=== PATIENT | female | born 1960 ===

== ENCOUNTER 2023-12-31 13:43 | Inpatient (IN) | payer BC ==
[~2023-12-31] VITALS: Ht 142.2 cm; Wt 56.5 kg
[2024-01-24] MEDS ORDERED: LR 1,000 ML IV SCH (21:45)
[2024-01-28] VITALS (13 sets, daily range): BP systolic 95–140; BP diastolic 62–90; PULSE 74–96; TEMP 97.4–98.1
[2024-01-28] MEDS ORDERED: LR 1,000 ML IV SCH (05:00)
[2024-01-28] MEDS ORDERED: Lidocaine PF 2% (20 MG/ML) 5 ML VIAL ONE (06:26)
[2024-01-28] MEDS ORDERED: fentaNYL 50 MCG/ML 2 ML VIAL ONE (06:26)
[2024-01-28] MEDS ORDERED: Midazolam 2 MG/2 ML VIAL ONE (06:26)
[2024-01-28] MEDS ORDERED: ePHEDrine 50 MG/ML VIAL ONE (06:30)
[2024-01-28] MEDS ORDERED: Tranexamic Acid 1,000 MG/10 ML VIAL ONE ×2 (06:35→10:08)
[2024-01-28] MEDS ORDERED: LOPRESSOR 225 MG/TAB PO (06:38)
[2024-01-28] MEDS ORDERED: LASIX 40MG TABL40 MG PO (06:39)
[2024-01-28] MEDS ORDERED: K-TAB20 PO (06:39)
[2024-01-28] MEDS ORDERED: LIPITOR 40MG TA40 MG PO (06:40)
[2024-01-28] MEDS ORDERED: MULTI VITAMINS1 TAB PO (06:40)
[2024-01-28] MEDS ORDERED: CALCIUM 600600 MG PO (06:40)
[2024-01-28] MEDS ORDERED: ASPIRIN 81M81 MG/TA2 PO (06:41)
[2024-01-28] MEDS ORDERED: ULTRAM 50MG TAB50 MG PO (06:42)
[2024-01-28] MEDS ORDERED: TYLENOL 325MG325 MG PO (06:42)
[2024-01-28 06:43] LABS: HEMATOCRIT 39.2 % (37.0-47.0); HEMOGLOBIN 14.1 g/dl (12.5-16.0); MEAN CELL VOLUME 90 fl (80.0-100.0); MEAN CORPUSCULAR HEMOGLOBIN 32 pg (27-31); MEAN CORPUSCULAR HGB CONC 36 g/dl (33.0-37.0); MEAN PLATELET VOLUME 10.2 fl (7.4-10.4); PLATELET COUNT 183 K/mm3 (130-400); RED BLOOD COUNT 4.36 M/mm3 (4.10-5.30); REDCELL DISTRIBUTION WIDTH-CV 11.8 % (11.5-14.5)
[2024-01-28] MEDS ORDERED: XALATAN EYE DROPS OU (06:43)
[2024-01-28 06:47] LABS: INR 1.2 (0.8-3.0); PROTHROMBIN TIME 12.8 SECONDS (9.7-12.8)
[2024-01-28] MEDS ORDERED: Bisacodyl 5 MG TAB PO PRN (07:15)
[2024-01-28] MEDS ORDERED: Mag/Al Hydrox/Simeth Susp 30 ML CUP PO PRN (07:15)
[2024-01-28] MEDS ORDERED: Ondansetron 4 MG/2 ML VIAL IV PRN ×2 (07:15→08:00)
[2024-01-28] MEDS ORDERED: Morphine 4 MG/ML VIAL IV PRN (07:15)
[2024-01-28] MEDS ORDERED: Naloxone 0.4 MG/ML VIAL IV PRN (07:15)
[2024-01-28] MEDS ORDERED: Magnes Hydrox (MOM) 80 MG/ML 30 ML CUP PO PRN (07:15)
[2024-01-28] MEDS ORDERED: Ketorolac 15 MG/ML VIAL IV SCH (07:15)
[2024-01-28] MEDS ORDERED: NS 1,000 ML IV SCH (07:15)
[2024-01-28] MEDS ORDERED: oxyCODONE 5 MG TAB PO PRN (07:15)
[2024-01-28] MEDS ORDERED: Acetaminophen 500 MG TAB PO PRN (07:15)
[2024-01-28] MEDS ORDERED: HYDROmorphone 1 MG/1 ML SYRINGE [PACU/SDC ONLY] IV PRN (08:00)
[2024-01-28] MEDS ORDERED: fentaNYL 50 MCG/ML 1 ML SYRINGE/VIAL [PACU/SDC ONLY] IV PRN (08:00)
[2024-01-28] MEDS ORDERED: Acetaminophen 500 MG TAB PO SCH (08:03)
[2024-01-28] MEDS ORDERED: Ketorolac 30 MG/ML VIAL IM ONE (08:25)
[2024-01-28] MEDS ORDERED: Morphine 4 MG/ML VIAL SQ ONE (08:25)
[2024-01-28] MEDS ORDERED: Phenylephrine 10 MG/ML VIAL ONE (08:30)
[2024-01-28] MEDS ORDERED: Magnes Hydrox (MOM) 80 MG/ML 30 ML CUP PO SCH (09:00)
[2024-01-28] MEDS ORDERED: Sennosides/Docusate 8.6-50 MG TAB PO SCH (09:00)
[2024-01-28] MEDS ORDERED: Ascorbic Acid 500 MG TAB PO SCH (09:00)
--- NOTE | 2024-01-28 11:10 | NUR ---
PATIENT IS A&O. VSS. NO COMPLAINTS. RIGHT HIP DSG IS CD&I WITH ABD & HYPAFIX. ICE PACK TO RLE. TEDS & SCD'S TO BLE. POSITIVE PEDAL PULSES TO BLE. HEAD TO TOE ASSESSMENT COMPLETE. LIQUIDS AT BEDSIDE. IV FLUIDS INFUSING VIA PUMP INTO LEFT HAND IV. AT BEDSIDE. NO OTHER NEEDS AT THIS TIME. CALL LIGHT IN REACH.
[2024-01-28] MEDS ORDERED: ceFAZolin 1 G in Water For Injection,Sterile 10 ML IV SCH (14:30)
--- NOTE | 2024-01-28 16:00 | NUR ---
PATIENT FELT GOOD AND ATTEMPTED TO EAT AFTER SURGERY. PATIENT CALLED OUT C/O NAUSEA AND VOMITED ALL OVER HERSELF & BED. PATIENT CLEANED UP AND GAVE PRN IV ZOFRAN.
[2024-01-29] VITALS (11 sets, daily range): BP systolic 103–120; BP diastolic 66–73; PULSE 88–98; TEMP 97.5–983
--- NOTE | 2024-01-29 02:42 | NUR ---
PT LAYING IN BED. PT HAS COMPLAINTS OF 4/10 PAIN IN R HIP. PT IS A/O X4. CALL LIGHT IS WITHIN REACH. ASSESSMENT COMPLETED EARLIER. MEDICATIONS ADMINISTERED PER EMAR. IV INFUSING IN LEFT HAND. NO SIGNS OF INFILTRATION OR PHLEBITIS. BED IS IN LOWEST POSITION.
[2024-01-29 06:28] LABS: CALCIUM 7.8 mg/dL (8.4-10.2); CREATININE, serum 0.56 mg/dL (0.57-1.11); POTASSIUM 3.7 mEq/L (3.5-4.5)
[2024-01-29 06:29] LABS: HEMATOCRIT 29.3 % (37.0-47.0)
[2024-01-29 06:30] LABS: HEMOGLOBIN 10.5 g/dl (12.5-16.0)
--- NOTE | 2024-01-29 08:00 | NUR ---
Pt doing okay this morning, she reports pain 4/10, states it is tolerable. Scheduled medications given this morning. Drsg to right hip is CDI. Had pt use her incentive spirometer. Pt is struggling with how to use it. Pt initially taking fast deep breath in. Then when I tried to explain, she then only took slow short breaths. Will continue to work on technique. Pt currently finishing up with breakfast.
[2024-01-29] MEDS ORDERED: Atorvastatin 40 MG TAB PO SCH (09:00)
--- NOTE | 2024-01-29 09:12 | NUR ---
steam trap worker met with pt to discuss discharge planning. She reports to live with her , Clarence [phone] in [place]. She sees CERTIFIED PEDIATRIC NURSE PRACTITIONER Francesca Suh for PCP needs and obtains medications from [facility] with no difficulties. She reports to be independent with ADLS and uses home oxygen and BIPAP from [facility] for DME. She states her is DPOA-HC, but she is unable to produce a copy; reporting it is on file with the hospital. KEREN could not locate this. SW provided Medicare.gov list of Home Health options. Pt only has BCBS and was working as a [employer]. She intends to take time off work. She chose [facility] for HH needs upon discharge. She was agreeable to a FWW being ordered through [facility]. KEREN emailed over FWW to [facility]. KEREN faxed [facility] a referral. Discharge Plan: home with HH
--- NOTE | 2024-01-29 11:34 | NUR ---
D: Electric Stove Installer stopped by room on rounds. A: Pt was resting and content. Pt has no needs right now. Pt appreciated the visit. P: Electric Stove Installer informed pt that if she needed anything to let her nurse know. Electric Stove Installer will follow up as needed
--- NOTE | 2024-01-29 12:30 | NUR ---
Pt noticed a small area to her right knee that was swollen. It is above and lateral to the knee cap. Pt reports it is now painful to her. It is soft to the touch and approximately tennis ball size. I did call and notify Dr River of this. Pt continues to sit up in the chair and is doing well. DRSG to right hip remains CDI
[2024-01-29] MEDS ORDERED: ASPIRIN 81M81 MG/TA2 PO (22:01)
[2024-01-29] MEDS ORDERED: CEPHALEXIN500 M1 PO (22:01)
[2024-01-29] MEDS ORDERED: NORCO 325 MG-51 TAB PO (22:02)
[2024-01-30 00:11] VITALS: BP 120/78; PULSE 95; TEMP 98.2
[2024-01-30 01:35] VITALS: BP_SYST 120
[2024-01-30 04:22] VITALS: BP 128/79; PULSE 89; TEMP 98.4
[2024-01-30 05:03] VITALS: BP_SYST 128
[2024-01-30 06:56] LABS: HEMOGLOBIN 10.1 g/dl (12.5-16.0)
[2024-01-30 06:57] LABS: HEMATOCRIT 28.7 % (37.0-47.0)
[2024-01-30 07:13] LABS: CALCIUM 7.6 mg/dL (8.4-10.2); CREATININE, serum 0.5 mg/dL (0.57-1.11); POTASSIUM 3.7 mEq/L (3.5-4.5)
[2024-01-30 08:00] VITALS: BP_SYST 114
--- NOTE | 2024-01-30 08:00 | NUR ---
PATIENT IS A&O. VSS. REPORTS PAIN IN RLE AT 06/23. TTWB TO RLE WITH WALKER. STAND BY ASSIST. PT/OT CONSULTED. HEAD TO TOE ASSESSMENT COMPLETE. TOLERATING GENERAL DIET. AM MEDS GIVEN. LEFT HAND IV TO INT. PATIENT HOPING TO DISCHARGE HOME LATER TODAY.
[2024-01-30 08:31] VITALS: BP 114/77; PULSE 93; TEMP 97.4
--- NOTE | 2024-01-30 12:00 | NUR ---
PATIENT'S IS NOW HERE. GAVE DISCHARGE INSTRUCTIONS, E-SCRIPTS SENT, AND DISCUSSED F/U APT. CHANGED POST-OP RIGHT HIP DSG AND APPLIED ABD & HYPAFIX. DC'D LEFT HAND IV AND COVERED SITE WITH GAUZE & COBAN. PATIENT IS DRESSED, PACKED AND ESCORTED OUT VIA WC TO PERSONAL VEHICLE WITH .
--- NOTE | 2024-01-30 16:47 | NUR ---
Stab Setter And Driller [facility]ed [facility] to [facility] . Patient's FWW to be delivered to her home by [facility].
== END 2024-01-30 12:00 | disposition home or self-care (01) | DRG 470 ==
LOC: SURG 01-28 05:14 → INPTSU 01-28 05:14 → SDCO 01-28 07:30 → SURG 01-28 07:30 → EDSTATUS 01-28 07:30 → SURG 01-28 11:06
PROVIDERS: Nurse Anesthetist, Certified Registered; ADMIT Orthopaedic Surgery
PROC: 0SR90JZ Replacement of Right Hip Joint with Synthetic Substitute, Open Approach (ICD-10-PCS; principal; 2024-01-28 07:30)
DX: M16.11 Unilateral primary osteoarthritis, right hip (principal); I11.0 Hypertensive heart disease with heart failure; G47.33 Obstructive sleep apnea (adult) (pediatric); I50.9 Heart failure, unspecified; E78.00 Pure hypercholesterolemia, unspecified; G89.29 Other chronic pain; M25.551 Pain in right hip; Z79.82 Long term (current) use of aspirin; Z79.899 Other long term (current) drug therapy; Z85.828 Personal history of other malignant neoplasm of skin; Z99.89 Dependence on other enabling machines and devices
CPT/HCPCS: A9284; C1713; C1763; C1776; J0665; J0690; J1580; J1885; J2250; J2270; J2371; J2405; J2704; J2795; J3010; J7030; J7120